=== PATIENT | male | born 1995 | race Caucasian/White ===

== ENCOUNTER 2024-05-10 20:25 | Emergency (ER) | payer BC ==
[2024-05-10 20:45] VITALS: TEMP 98.4
--- NOTE | 2024-05-10 21:06 | ED ---
Abdominal Pain HPI - General Chief Complaint: Abdominal Pain Stated Complaint: abd pain Time Seen by Provider: 05/10/24 21:04 Source: patient, RN notes reviewed Mode of arrival: ambulatory Limitations: no limitations - History of Present Illness Initial Comments: 28-year-old male presenting to the ER with a chief complaint of abdominal pain. Patient reports around 2 PM this afternoon he experienced a sudden onset of abdominal pain. Patient also endorsing nausea and vomiting. Denies any constipation or diarrhea. She describes the pain as sharp in nature with mild radiation to his testicles. He denies any testicular injury, redness, swelling or penile discharge. Patient took a Tylenol around 2 PM for pain with no relief. He denies any fevers or chills. Patient does report he appears more pale than normal. No history of bowel surgeries. Denies any chest pain, shortness of breath, urinary complaints or peripheral edema. - Related Data Previous Rx's Medication Instructions Recorded Ondansetron Odt [Zofran Odt] 4 mg PO Q8HR PRN #15 tab 05/10/24 Allergies Allergy/AdvReac Type Severity Reaction Status Date / Time No Known Allergies Allergy Verified 05/10/24 20:45 Review of Systems ROS Statement: Those systems with pertinent positive or pertinent negative responses have been documented in the HPI. ROS Other: All systems not noted in ROS Statement are negative. Past Medical History Past Medical History: Asthma History of Any Multi-Drug Resistant Organisms: None Reported Past Surgical History: No Surgical Hx Reported Past Psychological History: No Psychological Hx Reported Smoking Status: Vaper Past Alcohol Use History: Occasional Past Drug Use History: None Reported General Exam Limitations: no limitations General appearance: alert, in no apparent distress Respiratory exam: Present: normal lung sounds bilaterally. Absent: respiratory distress, wheezes, rales, rhonchi, stridor Cardiovascular Exam: Present: regular rate, normal rhythm, normal heart sounds. Absent: systolic murmur, diastolic murmur, rubs, gallop, clicks GI/Abdominal exam: Present: soft, tenderness (Left-sided), normal bowel sounds exam: Present: normal inspection, circumcision, other (No testicular tenderness. No rashes or urethral discharge.) Back exam: Present: other (No CVA tenderness bilaterally) Neurological exam: Present: alert, oriented X3, CN II-XII intact Skin exam: Present: warm, dry, normal color, pallor (Mild) Course Vital Signs 05/10/24 05/10/24 05/10/24 20:43 21:47 22:49 Temperature 98.4 F Pulse Rate 70 74 75 Respiratory 18 19 18 Rate Blood Pressure 143/93 124/66 111/76 O2 Sat by Pulse 97 100 99 Oximetry 05/10/24 23:51 Temperature Pulse Rate Respiratory 19 Rate Blood Pressure 119/72 O2 Sat by Pulse 99 Oximetry - Reevaluation(s) Reevaluation #1: 05/10/24 22:05 Patient evaluated. Patient reporting improvement of symptoms. Updated on laboratory studies. No signs of acute distress. Medical Decision Making - Medical Decision Making Was pt. sent in by a medical professional or institution (, PA, AGING DEPARTMENT SUPERVISOR, urgent care, hospital, or custodial...) When possible be specific @ -No Did you speak to anyone other than the patient for history (EMS, parent, family, police, friend...)? What history was obtained from this source @ -No Did you review nursing and triage notes (agree or disagree)? Why? @ -I reviewed and agree with nursing and triage notes Were old charts reviewed (outside hosp., previous admission, EMS record, old EKG, old radiological studies, urgent care reports/EKG's, custodial records)? Report findings @ -No old charts were reviewed Differential Diagnosis (chest pain, altered mental status, abdominal pain women, abdominal pain men, vaginal bleeding, weakness, fever, dyspnea, syncope, headache, dizziness, GI bleed, back pain, seizure, CVA, palpatations, mental health, musculoskeletal)? @ -Differential Abdominal Pain Men: Appendicitis, cholecystitis, diverticulosis, ischemic bowel, pancreatitis, hepatitis, UTI, gastroenteritis, AAA, incarcerated hernia, bowel obstruction, constipation, inflammatory bowel, hepatitis, peptic ulcer disease, splenic infarction, perforated viscus, testicular torsion, this is not meant to be an all-inclusive list EKG interpreted by me (3pts min.). @ -None done X-rays interpreted by me (1pt min.). @ -None done CT interpreted by me (1pt min.). @ -CT abdomen pelvis showing prominent gallbladder without evidence of wall thickening or surrounding inflammation. No other intra-abdominal abnormality seen. U/S interpreted by me (1pt. min.). @ -Gallbladder ultrasound limited due to extensive gas in upper abdomen. No clear abnormality. What testing was considered but not performed or refused? (CT, X-rays, U/S, labs)? Why? @ -None What meds were considered but not given or refused? Why? @ -None Did you discuss the management of the patient with other professionals (prof moy i.e. , PA, AGING DEPARTMENT SUPERVISOR, lab, RT, psych nurse, geriatric social worker, silverware cleaner, teacher, investment officer, manager of case management)? Give summary @ -No Was smoking cessation discussed for >3mins.? @ -No Was critical care preformed (if so, how long)? @ -No Were there social determinants of health that impacted care today? How? (Homelessness, low income, unemployed, alcoholism, drug addiction, transportation, low edu. Level, literacy, decrease access to med. care, fpc, rehab)? @ -No Was there de-escalation of care discussed even if they declined (Discuss DNR or withdrawal of care, Hospice)? DNR status @ -No What co-morbidities impacted this encounter? (DM, HTN, Smoking, COPD, CAD, Cancer, CVA, ARF, Chemo, Hep., AIDS, mental health diagnosis, sleep apnea, morbid obesity)? @ -None Was patient admitted / discharged? Hospital course, mention meds given and route, prescriptions, significant lab abnormalities, going to OR and other pertinent info. @ -Discharge. 28-year-old male presented to the ER with a chief complaint of abdominal pain. History and physical exam completed. Vitals within normal limi ts. Patient in no signs of acute distress. Nontoxic-appearing. Laboratory studies and imaging will be completed, patient is agreeable. Laboratory studies obtained showing a leukocytosis of 14.9 with a left shift which is likely reactive to nausea and vomiting. CMP with moderate signs of dehydration creatinine 1.27 with a GFR 78. CK1 06. Urinalysis with small blood and occasional bacteria. Urine will be sent for culture as patient is denying any current urinary complaints. Antibiotics will be held until culture results. CT abdomen pelvis showing prominent gallbladder without evidence of wall thickening or surrounding inflammation. Ultrasound recommended for further evaluation. Gallbladder ultrasound obtained at that time. Gallbladder ultrasound limited due to extensive gas in the upper abdomen. No clear abnormality. Patient received symptomatic control in the ER. Upon reevaluation, patient resting comfortably exam room no signs of acute distress. Patient reported improvement of pain. Results discussed with patient, all questions answered. Pain believed to be from gas. Patient stable for discharge at this time. Advise close follow-up with PCP. Patient discharged with Zofran. Strict return parameters discussed. Patient discharged in stable condition with follow-up to PCP. Patient verbally expressed understanding and agreement with care plan. Case discussed with ED attending, Dr. Sotomayor. Undiagnosed new problem with uncertain prognosis? @ -No Drug Therapy requiring intensive monitoring for toxicity (Heparin, Nitro, Insulin, Cardizem)? @ -No Were any procedures done? @ -No Diagnosis/symptom? @ -Abdominal pain Acute, or Chronic, or Acute on Chronic? @ -Acute Uncomplicated (without systemic symptoms) or Complicated (systemic symptoms)? @ -Uncomplicated Side effects of treatment? @ -No Exacerbation, Progression, or Severe Exacerbation? @ -No Poses a threat to life or bodily function? How? (Chest pain, [place], NH, pneumonia, PE, COPD, DKA, ARF, appy, cholecystitis, CVA, Diverticulitis, Homicidal, Suicidal, threat to staff... and all critical care pts) @ -No - Lab Data Result diagrams: 05/10/24 21:14 05/10/24 21:14 Lab Results 05/10/24 05/10/24 05/10/24 Range/Units 21:14 21:14 21:14 WBC 14.9 H (3.8-10.6) k/uL RBC 5.01 (4.30-5.90) m/uL Hgb 14.9 (13.0-17.5) gm/dL Hct 45.2 (39.0-53.0) % MCV 90.2 (80.0-100.0) fL MCH 29.7 (25.0-35.0) pg MCHC 32.9 (31.0-37.0) g/dL RDW 12.6 (11.5-15.5) % Plt Count 260 (150-450) k/uL MPV 7.7 Neutrophils % 94 % Lymphocytes % 3 % Monocytes % 2 % Eosinophils % 1 % Basophils % 0 % Neutrophils # 13.9 H (1.3-7.7) k/uL Lymphocytes # 0.4 L (1.0-4.8) k/uL Monocytes # 0.3 (0-1.0) k/uL Eosinophils # 0.1 (0-0.7) k/uL Basophils # 0.0 (0-0.2) k/uL Sodium 139 (137-145) mmol/L Potassium 4.6 (3.5-5.1) mmol/L Chloride 109 H (98-107) mmol/L Carbon Dioxide 24 (22-30) mmol/L Anion Gap 6 mmol/L BUN 12 (9-20) mg/dL Creatinine 1.27 H (0.66-1.25) mg/dL Est GFR (CKD-EPI)AfAm 90 (>60 ml/min/1.73 sqM) Est GFR (CKD-EPI)NonAf 78 (>60 ml/min/1.73 sqM) Glucose 118 H (74-99) mg/dL Plasma Lactic Acid Ignacio 1.0 (0.7-2.0) mmol/L Calcium 9.4 (8.4-10.2) mg/dL Total Bilirubin 0.8 (0.2-1.3) mg/dL AST 36 (17-59) U/L ALT 53 H (4-49) U/L Alkaline Phosphatase 87 (38-126) U/L Creatine Kinase (55-170) U/L Total Protein 7.2 (6.3-8.2) g/dL Albumin 4.2 (3.5-5.0) g/dL Amylase 43 (30-110) U/L Lipase 75 (23-300) U/L Urine Color Urine Appearance (Clear) Urine pH (5.0-8.0) Ur Specific [place] (1.001-1.035) Urine Protein (Negative) Urine Glucose (UA) (Negative) Urine Ketones (Negative) Urine Blood (Negative) Urine Nitrite (Negative) Urine Bilirubin (Negative) Urine Urobilinogen (<2.0) mg/dL Ur Leukocyte Esterase (Negative) Urine RBC (0-5) /hpf Urine Bacteria (None) /hpf Urine Mucus (None) /hpf 05/10/24 05/10/24 Range/Units 21:14 21:16 WBC (3.8-10.6) k/uL RBC (4.30-5.90) m/uL Hgb (13.0-17.5) gm/dL Hct (39.0-53.0) % MCV (80.0-100.0) fL MCH (25.0-35.0) pg MCHC (31.0-37.0) g/dL RDW (11.5-15.5) % Plt Count (150-450) k/uL MPV Neutrophils % % Lymphocytes % % Monocytes % % Eosinophils % % Basophils % % Neutrophils # (1.3-7.7) k/uL Lymphocytes # (1.0-4.8) k/uL Monocytes # (0-1.0) k/uL Eosinophils # (0-0.7) k/uL Basophils # (0-0.2) k/uL Sodium (137-145) mmol/L Potassium (3.5-5.1) mmol/L Chloride (98-107) mmol/L Carbon Dioxide (22-30) mmol/L Anion Gap mmol/L BUN (9-20) mg/dL Creatinine (0.66-1.25) mg/dL Est GFR (CKD-EPI)AfAm (>60 ml/min/1.73 sqM) Est GFR (CKD-EPI)NonAf (>60 ml/min/1.73 sqM) Glucose (74-99) mg/dL Plasma Lactic Acid Ignacio (0.7-2.0) mmol/L Calcium (8.4-10.2) mg/dL Total Bilirubin (0.2-1.3) mg/dL AST (17-59) U/L ALT (4-49) U/L Alkaline Phosphatase (38-126) U/L Creatine Kinase 106 (55-170) U/L Total Protein (6.3-8.2) g/dL Albumin (3.5-5.0) g/dL Amylase (30-110) U/L Lipase (23-300) U/L Urine Color Yellow Urine Appearance Turbid (Clear) Urine pH 5.5 (5.0-8.0) Ur Specific [place] 1.029 (1.001-1.035) Urine Protein 1+ H (Negative) Urine Glucose (UA) Negative (Negative) Urine Ketones 1+ H (Negative) Urine Blood Small H (Negative) Urine Nitrite Negative (Negative) Urine Bilirubin Negative (Negative) Urine Urobilinogen <2.0 (<2.0) mg/dL Ur Leukocyte Esterase Negative (Negative) Urine RBC 5 (0-5) /hpf Urine Bacteria Occasional H (None) /hpf Urine Mucus Few H (None) /hpf - Radiology Data Radiology results: report reviewed, image reviewed Disposition Clinical Impression: Abdominal pain Disposition: HOME SELF-CARE Condition: Stable Instructions (If sedation given, give patient instructions): Abdominal Pain (ED) Additional Instructions: Follow-up with PCP in the next 1 to 2 days. Return to the ER for any new or worsening concerns. Prescriptions: Ondansetron Odt [Zofran Odt] 4 mg PO Q8HR PRN #15 tab PRN Reason: Nausea Is patient prescribed a controlled substance at d/c from ED?: No Referrals: None,Stated [Primary Care Provider] - 1-2 days Forms: Area PCPs Time of Disposition: 23:43
[2024-05-10] MEDS: SODIUM CHLORIDE 0.9% 1,000 ML IV STA (21:20)
[2024-05-10] MEDS: KETOROLAC 15 MG/ML 1 ML VIAL IVP STA (21:21)
[2024-05-10] MEDS: ONDANSETRON 4 MG/2 ML VIAL IVP STA (21:23)
[2024-05-10 21:29] LABS: Appearance,Urine Turbid (Clear); Bacteria,Urine Occasional /hpf; Bilirubin,Urine Negative (Negative); Blood,Urine Small (Negative); Color,Urine Yellow; Glucose,Urine (UA) Negative (Negative); Ketones,Urine 1+ (Negative); Leukocyte Esterase,Urine Negative (Negative); Mucus,Urine Few /hpf; Nitrite,Urine Negative (Negative); PH, Urine 5.5 (5.0-8.0); Protein,Urine 1+ (Negative); RBC,Urine 5 /hpf (0-5); Specific Gravity,Urine 1.029 (1.001-1.035); Urobilinogen,Urine <2.0 mg/dL (<2.0)
[2024-05-10 21:30] LABS: Basophils % (A) 0 %; Eosinophils # (A) 0.1 k/uL (0-0.7); Eosinophils % (A) 1 %; HCT 45.2 % (39.0-53.0); HGB 14.9 gm/dL (13.0-17.5); Lymphocytes # (A) 0.4 k/uL (1.0-4.8); Lymphocytes % (A) 3 %; MCH 29.7 pg (25.0-35.0); MCHC 32.9 g/dL (31.0-37.0); MCV 90.2 fL (80.0-100.0); Mean Platelet Volume 7.7; Monocytes # (A) 0.3 k/uL (0-1.0); Monocytes % (A) 2 %; Neutrophils # (A) 13.9 k/uL (1.3-7.7); Neutrophils % (A) 94 %; Platelet Count 260 k/uL (150-450); RBC 5.01 m/uL (4.30-5.90); RDW 12.6 % (11.5-15.5); WBC 14.9 k/uL (3.8-10.6)
[2024-05-10 21:41] LABS: ALT 53 U/L (4-49); AST 36 U/L (17-59); African American GFR (CKD) 90 (>60 ml/min/1.73 sqM); Albumin 4.2 g/dL (3.5-5.0); Alkaline Phosphatase 87 U/L (38-126); Amylase 43 U/L (30-110); Anion Gap 6 mmol/L; Blood Urea Nitrogen 12 mg/dL (9-20); Calcium 9.4 mg/dL (8.4-10.2); Carbon Dioxide 24 mmol/L (22-30); Chloride 109 mmol/L (98-107); Glucose 118 mg/dL (74-99); Lipase 75 U/L (23-300); Non-African American GFR(CKD) 78 (>60 ml/min/1.73 sqM); Potassium 4.6 mmol/L (3.5-5.1); Sodium 139 mmol/L (137-145); Total Bilirubin 0.8 mg/dL (0.2-1.3); Total Protein 7.2 g/dL (6.3-8.2)
--- NOTE | 2024-05-10 21:57 | CT ---
EXAMINATION TYPE: CT abdomen pelvis w con CT DLP: 1899 mGycm, Automated exposure control for dose reduction was used. DATE OF EXAM: 05/10/2024 9:45 PM COMPARISON: None. CLINICAL INDICATION:Male, 28 years old with history of abdominal pain; lower abdominal pain TECHNIQUE: Axial CT of the abdomen and pelvis. Sagittal and coronal reformats were created on a [employer] workstation. Contrast used:100ml mL of Isovue 300 with IV Contrast, (none if empty) Oral contrast used: without Oral Contrast (none if empty) FINDINGS: LOWER CHEST: Unremarkable ABDOMEN LIVER: Unremarkable GALLBLADDER AND BILE DUCTS: Prominent in size but without evidence of underlying cholelithiasis or wa ll thickening. PANCREAS: Unremarkable. SPLEEN: Unremarkable. ADRENAL GLANDS: Unremarkable. KIDNEYS AND URETERS: No evidence of hydronephrosis or renal calculus. The ureters are unremarkable. PELVIS BLADDER: Unremarkable REPRODUCTIVE: Unremarkable. ABDOMEN & PELVIS STOMACH AND BOWEL: Stomach and duodenum are unremarkable. The appendix is unremarkable. No evidence o f bowel obstruction. PERITONEUM/RETROPERITONEUM: No evidence of pneumoperitoneum or free fluid. VASCULATURE: No evidence of aortic aneurysm. MUSCULOSKELETAL: No acute osseous abnormalities LYMPH NODES: No gross evidence for lymphadenopathy. SOFT TISSUE/ABDOMINAL WALL: Unremarkable IMPRESSION: Prominent gallbladder without evidence of wall thickening or surrounding inflammation. This can be re lated to a prolonged fasting state. Correlate with patient history, if right upper quadrant pain is p resent consider follow-up ultrasound. Otherwise no intra-abdominal abnormality. [facility], , 05/10/2024 9:55 PM
[2024-05-10 22:51] VITALS: PULSE 75
--- NOTE | 2024-05-10 23:36 | US ---
EXAM: US Abdomen Limited, Right Upper Quadrant CLINICAL HISTORY: abd pain TECHNIQUE: Real-time ultrasound of the right upper quadrant with image documentation. COMPARISON: No relevant prior studies available. FINDINGS: Liver: Unremarkable. No intrahepatic bile duct dilation. No abnormality is her seen in the liver; however, portions of the liver are poorly evaluated due to ribs. Gallbladder: Unremarkable. No gallstones or gallbladder wall thickening. No surrounding fluid. Common bile duct: The common bile duct was not seen due to poor visualization in the region there is no clear evidence of a dilated common bile duct in the area. Pancreas: The pancreas is obscured by overlying gas. Right kidney: Unremarkable. No stones. No solid mass. No hydronephrosis. IMPRESSION: Limited study due to extensive gas and upper abdomen high under her ribs. No clear abnormality; however, the common bile duct, pancreas and portions of the liver are not seen.
[2024-05-10] MEDS ORDERED: ONDANSETRON 4 MG ODT STARTER PACK 2 TAB BTL PO STA (23:49)
[2024-05-10 23:59] VITALS: BP 119/72; RESP 19
== END 2024-05-10 23:59 | disposition home or self-care (01) ==
LOC: EC 20:25
CPT/HCPCS: 36415; 74177; 76705; 80053; 81001; 82150; 82550; 83605; 83690; 85025; 87086; 96361; 96374; 96375; 99284